=== PATIENT | female | born 1950 | race Caucasian/White ===

== ENCOUNTER 2019-03-26 09:40 | Outpatient (CLI) | payer MEDICARE, BC ==
--- NOTE | 2019-03-26 11:11 | MRI ---
EXAM: MRI lumbar spine without contrast HISTORY: Mid back pain since 2006 COMPARISON: None TECHNIQUE: Multiple planar multisequence MR images were obtained of the lumbar spine without contrast . FINDINGS: The vertebral bodies demonstrate normal height and alignment without fracture or subluxation. There i s narrowing of L4/5 intervertebral disc with surrounding endplate degenerative changes. The prevertebral and paraspinal soft tissues are unremarkable. No marrow signal abnormality is present. The conus medullaris terminates normally at T12/L1. T12/L1: No significant posterior bulge or protrusion. No posterior facet arthrosis. No central mahog[place] l stenosis. No neural foraminal stenosis L1/2: No significant posterior bulge or protrusion. No posterior facet arthrosis. No central canal stenosis. No neural foraminal stenosis L2/3: No significant posterior bulge or protrusion. Mild to moderate bilateral posterior facet arthr osis. No central canal stenosis. No neural foraminal stenosis L3/4: A small generalized concentric disc bulge is seen. Moderate bilateral posterior facet arthrosi s. Mild central canal stenosis. Mild bilateral neural foraminal stenosis L4/5: A moderate disc osteophyte complex is seen. Mild bilateral posterior facet arthrosis. No cent ral canal stenosis. Mild bilateral neural foraminal stenosis L5/S1: No significant posterior bulge or protrusion. No posterior facet arthrosis. No central canal stenosis. No neural foraminal stenosis IMPRESSION: Degenerative changes of the lumbar spine as above
--- NOTE | 2019-03-26 11:52 | MRI ---
MRI THORACIC SPINE: HISTORY: Thoracic radiculopathy. Multiplanar, multisequence noncontrast enhanced MRI images thoracic spine obtained. FINDINGS: The spinal cord is unremarkable with no evidence of cord masses or lesions. Small intraosseous hemangiomas seen at the T9 and T6 levels. Disc desiccation with broad-based disc bulges seen at T5-6, T6-7, T9-10, and T10-11. These result in minimal but not significant degree of central stenosis. Some Modic type II changes seen in the inferior endplate of T9 and superior endplate of T10. IMPRESSION: Some broad-based disc desiccation and disc bulges without evidence of significant central or neural f oraminal narrowing. Transcribed Date/Time: 03/26/2019 11:57 AM
== END 2019-03-26 09:41 | disposition home or self-care (01) ==
LOC: SCSMRI 09:40
PROVIDERS: ATTEND Neurological Surgery
DX: M51.14 Intervertebral disc disorders with radiculopathy, thoracic region (principal); G62.9 Polyneuropathy, unspecified; M47.816 Spondylosis without myelopathy or radiculopathy, lumbar region
CPT/HCPCS: 72146; 72148

== ENCOUNTER 2025-06-04 11:17 | Outpatient (CLI) | payer MEDICARE, BC | END 2025-06-04 11:18 | disposition home or self-care (01) | LOC: RAD 11:17 | PROVIDERS: ATTEND Student in an Organized Health Care Education/Training Program | DX: C34.32 Malignant neoplasm of lower lobe, left bronchus or lung (principal); R91.1 Solitary pulmonary nodule | CPT/HCPCS: 71046 ==

== ENCOUNTER 2025-06-05 11:45 | Outpatient (CLI) | payer MEDICARE, BC | END 2025-06-05 11:46 | disposition home or self-care (01) | LOC: PET 11:45 | PROVIDERS: ATTEND Internal Medicine Hematology & Oncology | DX: C18.0 Malignant neoplasm of cecum (principal); D50.0 Iron deficiency anemia secondary to blood loss (chronic); C34.32 Malignant neoplasm of lower lobe, left bronchus or lung | CPT/HCPCS: 78815; A9552 ==

== ENCOUNTER 2025-08-27 11:31 | Inpatient (IN) | payer MEDICARE, BC ==
[~2025-08-27 11:31] MED LIST: Iopamidol-370 76% 500 ML MDV (1 ML CHARGE) ONE
[2025-08-27 13:13] LABS: Hematocrit 25.9 % (36.0-47.0); Hemoglobin 8.7 g/dL (12.0-16.0); Mean Corpuscular Hemoglobin 29.7 pg (27.0-31.0); Mean Corpuscular Volume 88.4 fL (78.0-98.0); Platelet Count 35 10x3/uL (130-400); Red Blood Cell (RBC) Count 2.93 mill/uL (4.20-5.40); White Blood Cell (WBC) Count 1.32 10x3/uL (4.8-10.8)
[2025-08-27 13:24] LABS: ALT (SGPT) 14 U/L (Less than 34); AST (SGOT) 16 U/L (11-34); Albumin 3.8 g/dL (3.1-4.5); Alkaline Phosphatase 127 U/L (40-110); Anion Gap 13 mmol/L (10-20); BUN (Urea Nitrogen) 17 mg/dL (9.8-20.1); Bilirubin, Total 1.1 mg/dL (0.3-1.2); Calc. Creatinine Clearance 0 mL/min (70-130); Calcium 8.9 mg/dL (7.8-10.44); Carbon Dioxide 22 mmol/L (23-31); Chloride 104 mmol/L (98-107); Globulin 2.9 g/dL (2.4-3.5); Glucose 84 mg/dL (83-110); Potassium 4.0 mmol/L (3.5-5.1); Sodium 135 mmol/L (136-145)
[2025-08-27 13:45] LABS: Anisocytosis MODERATE=16-30 cells HPF (0-5); Dohle Bodies SLIGHT; Macrocytosis SLIGHT = 6-15 cells HPF (0-5); Microcytosis SLIGHT = 6-15 cells HPF (0-5); Ovalocytes SLIGHT = 2-5 cells HPF (0-1); Platelet Adequacy Comment Significant Decrease; Polychromasia SLIGHT = 2-3 cells HPF (0-2); Smudge Cells 2.0 %; Toxic Granulation MODERATE
[2025-08-27] MEDS ORDERED: Ondansetron PF 4 MG/2 ML Vial IVP PRN (16:33)
[2025-08-27] MEDS ORDERED: Acetaminophen 325 MG TAB PO PRN (16:33)
[2025-08-27 17:51] VITALS: BMI 30.5
[2025-08-27] MEDS: FLU (Fluad Triv) 25-26 (65UP)PF 45 MCG/0.5 ML Syringe IM ONE (20:18)
[2025-08-27] MEDS ORDERED: Albuterol 200 PUFF (6.7GM INHALER) INH PRN (20:27)
[2025-08-27] MEDS ORDERED: Calcium Carbonate 500 MG ChewTAB PO PRN (20:48)
[2025-08-27] MEDS: Losartan 25 MG TAB PO SCH (20:52)
[2025-08-27] MEDS: Calcium Carbonate 500 MG ChewTAB PO SCH (20:52)
[2025-08-27] MEDS: Estradiol 1 MG TAB PO SCH (20:52)
[2025-08-27] MEDS: Gabapentin 100 MG CAP PO SCH (20:52)
[2025-08-27] MEDS: DULoxetine 20 MG CAP PO SCH (20:52)
[2025-08-28 05:00] LABS: Hematocrit 17.8 % (36.0-47.0); Hemoglobin 6.0 g/dL (12.0-16.0); Mean Corpuscular Hemoglobin 30.2 pg (27.0-31.0); Mean Corpuscular Volume 89.4 fL (78.0-98.0); Platelet Count 28 10x3/uL (130-400); Red Blood Cell (RBC) Count 1.99 mill/uL (4.20-5.40); White Blood Cell (WBC) Count 1.13 10x3/uL (4.8-10.8)
[2025-08-28 05:09] LABS: ALT (SGPT) 14 U/L (Less than 34); AST (SGOT) 13 U/L (11-34); Albumin 3.6 g/dL (3.1-4.5); Alkaline Phosphatase 127 U/L (40-110); Anion Gap 12 mmol/L (10-20); BUN (Urea Nitrogen) 19 mg/dL (9.8-20.1); Bilirubin, Total 0.9 mg/dL (0.3-1.2); Calc. Creatinine Clearance 83 mL/min (70-130); Calcium 8.8 mg/dL (7.8-10.44); Carbon Dioxide 24 mmol/L (23-31); Chloride 107 mmol/L (98-107); Globulin 2.7 g/dL (2.4-3.5); Glucose 102 mg/dL (83-110); Potassium 4.0 mmol/L (3.5-5.1); Sodium 139 mmol/L (136-145)
[2025-08-28 06:02] LABS: Platelet Adequacy Comment Significant Decrease; Smudge Cells 13.9 %; Stomatocytes SLIGHT = 2-5 cells HPF (0-1); Toxic Granulation SLIGHT
[2025-08-28] MEDS: Ezetimibe 10 MG TAB PO SCH (09:14)
[2025-08-28] MEDS: Mupirocin 1 GM TUBE NASAL DECOLONIZATION NASAL SCH (09:14)
[2025-08-28 10:21] LABS: Glucose, Urine (Dipstick) Normal (Negative); Leukocyte 75 Leu/uL (Negative); Protein, Urine (Dipstick) Negative (Neg-Trace); RBC/HPF 0-3 HPF (0-3); Specific Gravity, Urine 1.017 (1.002-1.036)
[2025-08-28 10:25] LABS: Bacteria/HPF 1+ HPF (None Seen)
[2025-08-29 10:41] LABS: Anion Gap 12 mmol/L (10-20); BUN (Urea Nitrogen) 15 mg/dL (9.8-20.1); Calc. Creatinine Clearance 111 mL/min (70-130); Calcium 8.8 mg/dL (7.8-10.44); Carbon Dioxide 21 mmol/L (23-31); Chloride 105 mmol/L (98-107); Glucose 108 mg/dL (83-110); Potassium 3.4 mmol/L (3.5-5.1); Sodium 135 mmol/L (136-145)
[2025-08-29 10:43] LABS: Hematocrit 19.7 % (36.0-47.0); Hemoglobin 6.7 g/dL (12.0-16.0); Mean Corpuscular Hemoglobin 29.8 pg (27.0-31.0); Mean Corpuscular Volume 87.6 fL (78.0-98.0); Platelet Count 15 10x3/uL (130-400); Red Blood Cell (RBC) Count 2.25 mill/uL (4.20-5.40); White Blood Cell (WBC) Count 0.88 10x3/uL (4.8-10.8)
[2025-08-29 11:15] LABS: Anisocytosis SLIGHT = 6-15 cells HPF (0-5); Nucleated RBC (Manual Ct) 1 % (0); Platelet Adequacy Comment Significant Decrease; Polychromasia SLIGHT = 2-3 cells HPF (0-2)
[2025-08-30 09:55] LABS: Hematocrit 22.6 % (36.0-47.0); Hemoglobin 7.4 g/dL (12.0-16.0); Mean Corpuscular Hemoglobin 28.4 pg (27.0-31.0); Mean Corpuscular Volume 86.6 fL (78.0-98.0); Platelet Count 15 10x3/uL (130-400); Red Blood Cell (RBC) Count 2.61 mill/uL (4.20-5.40); White Blood Cell (WBC) Count 1.22 10x3/uL (4.8-10.8)
[2025-08-30 10:08] LABS: Anion Gap 8 mmol/L (10-20); BUN (Urea Nitrogen) 11 mg/dL (9.8-20.1); Calc. Creatinine Clearance 118 mL/min (70-130); Calcium 8.9 mg/dL (7.8-10.44); Carbon Dioxide 24 mmol/L (23-31); Chloride 107 mmol/L (98-107); Glucose 98 mg/dL (83-110); Potassium 3.8 mmol/L (3.5-5.1); Sodium 135 mmol/L (136-145)
[2025-08-30 10:55] LABS: Anisocytosis SLIGHT = 6-15 cells HPF (0-5); Macrocytosis SLIGHT = 6-15 cells HPF (0-5); Microcytosis SLIGHT = 6-15 cells HPF (0-5); Nucleated RBC (Manual Ct) 1 % (0); Platelet Adequacy Comment Significant Decrease; Polychromasia SLIGHT = 2-3 cells HPF (0-2); Smudge Cells 1.0 %
[2025-08-30 14:39] VITALS: BP 113/68; TEMP 98.5
== END 2025-08-30 14:55 | disposition home or self-care (01) | DRG 812 ==
LOC: ERS 11:31 → T4-A 16:33 → MSONC 08-28 02:00 → OBSVTOIN 08-29 08:15
PROVIDERS: ADMIT Family Medicine; ATTEND Hospitalist
PROC: 3E02340 Introduction of Influenza Vaccine into Muscle, Percutaneous Approach (ICD-10-PCS; principal; 2025-08-27)
PROC: 30233N1 Transfusion of Nonautologous Red Blood Cells into Peripheral Vein, Percutaneous Approach (ICD-10-PCS; 2025-08-28)
DX: D64.9 Anemia, unspecified (principal); D61.818 Other pancytopenia; I10 Essential (primary) hypertension; E78.5 Hyperlipidemia, unspecified; N18.9 Chronic kidney disease, unspecified; Z98.890 Other specified postprocedural states; Z88.0 Allergy status to penicillin; Z92.21 Personal history of antineoplastic chemotherapy; Z85.118 Personal history of other malignant neoplasm of bronchus and lung; Z88.8 Allergy status to other drugs, medicaments and biological substances; Z87.891 Personal history of nicotine dependence; R53.81 Other malaise; D70.9 Neutropenia, unspecified; Z79.899 Other long term (current) drug therapy
CPT/HCPCS: 36430; 71045; 71275; 80048; 80053; 81001; 83880; 84484; 85025; 85379; 86850; 86900; 86901; 93005; 93306; J1642; P9016; Q9967

== ENCOUNTER 2025-10-02 14:33 | Outpatient (CLI) | payer MEDICARE, BC | END 2025-10-02 14:34 | disposition home or self-care (01) | LOC: BICMRI 14:33 | PROVIDERS: ATTEND Radiology Radiation Oncology | DX: C34.12 Malignant neoplasm of upper lobe, left bronchus or lung (principal) | CPT/HCPCS: 70553; 76376 ==